=== PATIENT | male | born 1955 | race Caucasian/White ===

== ENCOUNTER → 2020-07-24 | Outpatient (CLI) | payer BC ==
[~2020-07-24] MED LIST: VISIPAQUE 320 MG/ML, 150ML BOTTLE ONE
[2020-07-24 09:39] LABS: CREATININE 1.16 mg/dL (0.7-1.3)
== END | disposition home or self-care (01) ==
LOC: CVU 08:25
PROVIDERS: ATTEND Internal Medicine Cardiovascular Disease
DX: I65.23 Occlusion and stenosis of bilateral carotid arteries (principal); I25.10 Atherosclerotic heart disease of native coronary artery without angina pectoris; I48.0 Paroxysmal atrial fibrillation; I50.41 Acute combined systolic (congestive) and diastolic (congestive) heart failure; I11.0 Hypertensive heart disease with heart failure; I35.8 Other nonrheumatic aortic valve disorders; R59.0 Localized enlarged lymph nodes; J43.9 Emphysema, unspecified; Z95.0 Presence of cardiac pacemaker
CPT/HCPCS: 36415; 71275; 74174; 82565; 93880; Q9967

== ENCOUNTER 2020-09-03 12:00 | Inpatient (IN) | payer BC ==
[~2020-09-03] VITALS: Ht 188 cm; Wt 127.2 kg
[2020-09-10] MEDS ORDERED: SODIUM CHLORIDE 0.9% 1,000 ML IV ONE (08:00)
[2020-09-10] MEDS ORDERED: ONDANSETRON 2MG/ML, 2ML IV PRN (08:00)
[2020-09-10] MEDS ORDERED: LISI5TAB7 PO (08:05)
[2020-09-10] MEDS ORDERED: FURO20TA3 PO (08:05)
[2020-09-10] MEDS ORDERED: AMIO100T4 PO (08:05)
[2020-09-10] MEDS ORDERED: APIX5TAB PO (08:05)
[2020-09-10] MEDS ORDERED: CARV6.2512 PO (08:05)
[2020-09-10] MEDS ORDERED: CLOP75TA52 PO (08:05)
[2020-09-10] MEDS ORDERED: DIGO125T85 PO (08:05)
[2020-09-10] MEDS ORDERED: ATOR40TA PO (08:05)
[2020-09-10 08:28] LABS: BASOPHILS % (AUTO) 1 % (0-1); EOSINOPHILS % (AUTO) 2 % (1-7); LYMPHOCYTES % (AUTO) 27 % (22-44); MEAN CORPUSCULAR HGB CONC 34.5 g/dL (33.2-36.2); MEAN PLATELET VOLUME 8.8 fL (7.4-10.4); MONOCYTES % (AUTO) 8 % (2-9); NEUTROPHILS % (AUTO) 62 % (42-75); PLATELET COUNT 175 x10^3/uL (130-400); RED BLOOD COUNT 4.54 x10^6/uL (4.38-5.82)
[2020-09-10 08:35] LABS: ALBUMIN 3.8 g/dL (3.4-5.0); ANION GAP 4 mmol/L (5-15); CALCIUM 9.2 mg/dL (8.5-10.1); CHLORIDE 109 mmol/L (98-107)
[2020-09-10 08:38] LABS: ALANINE AMINOTRANSFERASE 31 U/L (12-78); ALKALINE PHOSPHATASE 52 U/L (45-117); BILIRUBIN,TOTAL 0.4 mg/dL (0.2-1.0); CREATININE 1.45 mg/dL (0.7-1.3)
[2020-09-10 08:40] LABS: INTERNATIONAL NORMALIZED RATIO 1.02 (0.93-1.1); PROTHROMBIN TIME 10.9 Seconds (9.6-11.5)
[2020-09-10] MEDS ORDERED: ONDANSETRON 2MG/ML, 2ML ONE ×2 (09:53)
[2020-09-10] MEDS ORDERED: CEFAZOLIN 1,000 MG ONE ×2 (09:53)
[2020-09-10] MEDS ORDERED: FENTANYL PF 250 MCG/5ML ONE (09:53)
[2020-09-10] MEDS ORDERED: DEXAMETHASONE 4 MG/ML, 1ML ONE ×2 (09:53)
[2020-09-10] MEDS ORDERED: PROPOFOL 10 MG/ML, 20ML ONE (09:58)
[2020-09-10] MEDS ORDERED: ROCURONIUM 10MG/ML,5ML ONE (09:58)
[2020-09-10] MEDS ORDERED: SUCCINYLCHOLINE 20 MG/ML, 10ML ONE (09:58)
[2020-09-10] MEDS ORDERED: HEPARIN 1,000 UNITS/ML, 10ML ONE ×2 (09:58)
[2020-09-10] MEDS ORDERED: PHENYLEPHRINE 10 MG/ML ONE (09:59)
[2020-09-10] MEDS ORDERED: ACETAMINOPHEN 325 MG TABLET PO PRN (11:00)
[2020-09-10] MEDS ORDERED: LABETALOL 20 MG/4 ML IVPush PRN (11:00)
[2020-09-10] MEDS: LISINOPRIL 5 MG TABLET PO SCH (11:00)
[2020-09-10] MEDS ORDERED: hydrALAzine 20 MG/ML, 1ML IVPush PRN (11:00)
[2020-09-10 13:08] VITALS: BP 141/85
[2020-09-10] MEDS: FUROSEMIDE 20 MG TABLET PO SCH (13:09)
[2020-09-10] MEDS: AMIODARONE 200 MG TABLET PO SCH (13:10)
[2020-09-10 17:24] VITALS: BP 120/76
[2020-09-10] MEDS: CARVEDILOL 6.25 MG TABLET PO SCH (17:24)
[2020-09-10 18:45] VITALS: BP 131/80
[2020-09-10] MEDS: APIXABAN 5 MG TABLET PO SCH (20:50)
[2020-09-10] MEDS ORDERED: ATORVASTATIN 40 MG TABLET PO SCH (21:00)
[2020-09-11 00:37] VITALS: BP 143/90
[2020-09-11 05:41] LABS: MEAN CORPUSCULAR HEMOGLOBIN 33.6 pg (27.5-34.5); MEAN CORPUSCULAR HGB CONC 34.4 g/dL (33.2-36.2); PLATELET COUNT 145 x10^3/uL (130-400); RED BLOOD COUNT 4.31 x10^6/uL (4.38-5.82); RED CELL DISTRIBUTION WIDTH 13.1 % (9.4-14.8)
[2020-09-11 05:57] LABS: ANION GAP 6 mmol/L (5-15); CALCIUM 9.3 mg/dL (8.5-10.1); CHLORIDE 104 mmol/L (98-107)
[2020-09-11 05:59] LABS: CREATININE 1.25 mg/dL (0.7-1.3)
[2020-09-11 06:15] LABS: BAND#(MANUAL) 0.21 x10^3/uL; BANDS%(MANUAL) 1 % (0-7); LYMPH#(MANUAL) 1.46 x10^3/uL (1-3.4); LYMPHS% (MANUAL) 7 % (22-44); MONOS#(MANUAL) 1.46 x10^3/uL (0.3-2.7); MONOS% (MANUAL) 7 % (2-9); SEG#(MANUAL) 17.68 x10^3/uL (1.8-6.8); SEGS% (MANUAL) 85 % (42-75)
[2020-09-11 06:17] LABS: <PLATELET ESTIMATE> ADEQUATE; <PLT MORPHOLOGY> NORMAL PLT MORPH
[2020-09-11 06:20] VITALS: BP 136/80
[2020-09-11] MEDS: CARVEDILOL 6.25 MG TABLET PO SCH (06:20)
[2020-09-11 07:20] VITALS: BP 122/79
[2020-09-11] MEDS: APIXABAN 5 MG TABLET PO SCH (08:49)
[2020-09-11] MEDS: LISINOPRIL 5 MG TABLET PO SCH (08:49)
[2020-09-11] MEDS: AMIODARONE 200 MG TABLET PO SCH (08:50)
[2020-09-11] MEDS: FUROSEMIDE 20 MG TABLET PO SCH (08:50)
[2020-09-11] MEDS ORDERED: DIGOXIN 0.125 MG TABLET PO SCH (09:00)
[2020-09-11] MEDS ORDERED: CLOPIDOGREL 75 MG TABLET PO SCH (09:00)
[2020-09-11] MEDS ORDERED: FURO20TA3 PO (10:29)
[2020-09-11] MEDS ORDERED: ACET325T26 PO (10:29)
[2020-09-11] MEDS ORDERED: LISI5TAB7 PO (10:29)
[2020-09-11] MEDS ORDERED: APIX5TAB PO (10:29)
== END 2020-09-11 13:00 | disposition home or self-care (01) | DRG 266 ==
LOC: ORIP 09-10 07:17 → 5SO 09-10 12:28 → DCLOUNGE 09-11 12:48
PROVIDERS: ADMIT Internal Medicine Cardiovascular Disease; ATTEND Internal Medicine Cardiovascular Disease
PROC: B3101ZZ Fluoroscopy of Thoracic Aorta using Low Osmolar Contrast (ICD-10-PCS; 2020-09-10)
PROC: B24BZZ4 Ultrasonography of Heart with Aorta, Transesophageal (ICD-10-PCS; 2020-09-10)
PROC: 02RF38Z Replacement of Aortic Valve with Zooplastic Tissue, Percutaneous Approach (ICD-10-PCS; principal; 2020-09-10 10:30)
DX: I35.0 Nonrheumatic aortic (valve) stenosis (principal); Z00.6 Encounter for examination for normal comparison and control in clinical research program; I50.33 Acute on chronic diastolic (congestive) heart failure; Z20.822 Contact with and (suspected) exposure to COVID-19; I11.0 Hypertensive heart disease with heart failure; I25.10 Atherosclerotic heart disease of native coronary artery without angina pectoris; I48.0 Paroxysmal atrial fibrillation; Z95.0 Presence of cardiac pacemaker; Z95.5 Presence of coronary angioplasty implant and graft
CPT/HCPCS: 33361; 36415; 76937; 80048; 80053; 85025; 85347; 85610; 86850; 86900; 86923; 87635; 93005; 93306; 93355; C1760; C1769; C1894; G0378; J0690; J1100; J1644; J2405; J2704; J3010; J0330; J2370; Q9967